=== PATIENT | female | born 1955 | race Caucasian/White ===

== ENCOUNTER 2020-11-17 14:16 | Emergency (ER) | payer MEDICARE, SELFPAY ==
--- NOTE | ~2020-11-17 | XR_ITS ---
EXAMINATION: XR ankle LT min 3V DATE: 11/17/2020 14:38 INDICATION: Left ankle pain TECHNIQUE: Anteroposterior, lateral, mortise, and additional oblique view of the ankle were obtained. 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 An acute, trau matic, closed, oblique fracture of the distal fibula is present which extends to the level of the tib ial plafond. There is an acute, traumatic, closed, transverse fracture of the medial malleolus at the level of the tibial plafond. Ankle soft tissue swelling is present. Mild osteoarthritis is noted. IMPRESSION: 1. Acute oblique fracture of the distal fibula extending to the tibial plafond. 2. Acute transverse fracture of the medial malleolus at the level of the tibial plafond. 3. 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 Reviewed, dictated and finalized at location A.
[2020-11-17 16:15] VITALS: BP 128/76; PULSE 80; RESP 16; TEMP 36.6; O2SAT 96
--- NOTE | 2020-11-17 16:50 | ED.GENADULT ---
HPI - General Adult General Chief complaint: Extremity Injury, Lower <CAROLIN Woodson Last Filed: 11/17/20 18:12> Stated complaint: left ankle injury <CAROLIN Woodson Last Filed: 11/17/20 18:12> Time Seen by Provider: 11/17/20 16:26 <CAROLIN Woodson Last Filed: 11/17/20 18:12> History of Present Illness HPI narrative: Patient is a 65 YO female who comes to the Ed with left ankle pain. stepped awarkwardly down 1 step and rolled left ankle. Fell to ground. No other injuries. left ankle is edematous. Not able to bear weight - Does have crutches at home and used them. No numbness or tingling currently, did have some earlier. Took aleve 2 hours ago which helped. pain is am 8/10 with movements. <CAROLIN Woodson Last Filed: 11/17/20 18:12> Related Data Allergies/adverse reactions: Allergies Allergy/AdvReac Type Severity Reaction Status Date / Time latex Allergy Intermediate Rash Verified 04/08/19 09:39 Penicillins Allergy Unknown Verified 01/07/19 11:09 Sulfa (Sulfonamide Allergy Unknown Verified 01/07/19 11:09 Antibiotics) <CAROLIN Woodson Last Filed: 11/17/20 18:12> Review of Systems Constitutional: Constitutional: Reports as per HPI, Denies fever(s), Denies night sweats and Denies weakness <CAROLIN Woodson Last Filed: 11/17/20 18:12> Cardiovascular: Cardiovascular: Denies chest pain, Denies edema, Denies leg edema, Denies dyspnea and Denies orthopnea <CAROLIN Woodson Last Filed: 11/17/20 18:12> Respiratory: Respiratory: Denies cough and Denies dyspnea <CAROLIN Woodson Last Filed: 11/17/20 18:12> Gastrointestinal: Gastrointestinal: Denies abdominal pain, Denies constipation, Denies diarrhea, Denies nausea and Denies vomiting <CAROLIN Woodson Last Filed: 11/17/20 18:12> Musculoskeletal: Musculoskeletal: Denies abnormal gait, Denies back pain, Denies numbness and Denies tingling <Riki ZelayaCAROLIN young Last Filed: 11/17/20 18:12> Comments: See HPI <Riki TorresCAROLIN Last Filed: 11/17/20 18:12> Neurologic: Denies Abnormal speech present, Denies abnormal gait, Denies numbness, Denies tingling and Denies weakness <Riki ZelayaCAROLIN young Last Filed: 11/17/20 18:12> Psychiatric: Psychiatric: Denies homicidal ideation and Denies suicidal ideation <Riki ZelayaCAROLIN young Last Filed: 11/17/20 18:12> [facility] Family History Family History: Family History (Updated 01/07/19 @ 11:12 by DOCTOR UNKNOWN) Other Diabetes mellitus Family history of arthritis <Riki ZelayaCAROLIN young Last Filed: 11/17/20 18:12> Social History Social History: Social History Smoking status: Never smoker Alcohol intake: current <Riki ZelayaCAROLIN young Last Filed: 11/17/20 18:12> Exam Const: General: cooperative, healthy appearing, comfortable, no acute distress, well developed, alert, awake and Physically active <Riki ZelayaCAROLIN young Last Filed: 11/17/20 18:12> Orientation/consciousness: patient oriented x3 <Riki Dey CAROLIN Torres Last Filed: 11/17/20 18:12> HENMT: Head: normal to inspection, normocephalic and atraumatic <Riki Dey CAROLIN Torres Last Filed: 11/17/20 18:12> Ears: external ears normal <Riki ZelayaCAROLIN young Last Filed: 11/17/20 18:12> General nose exam: Normal external nose present <Riki Dey CAROLIN Torres Last Filed: 11/17/20 18:12> Eyes: Pupils: Equal, round and reactive pupils present <CAROLIN Woodson Last Filed: 11/17/20 18:12> EOM: EOMs intact bilaterally <CAROLIN Woodson Last Filed: 11/17/20 18:12> Neck: Neck: normal visual inspection <CAROLIN Woodson Last Filed: 11/17/20 18:12> Chest: Chest palpation & inspection: normal inspection of the chest and no tenderness <CAROLIN Woodson Last Filed: 11/17/20 18:12> Resp: Effort & Inspection: nor
[2020-11-17] MEDS: ACETAMINOPHEN 500 MG TABLET 1000 MG PO (17:13)
[2020-11-17] MEDS: KETOROLAC 30 MG/ML VIAL (*BKC) IM (18:40)
[2020-11-17 18:50] VITALS: BP 134/78; PULSE 80; RESP 18; O2SAT 100
== END 2020-11-17 18:52 | disposition home or self-care (01) ==
PROVIDERS: Emergency Provider Emergency Medicine; PCP Internal Medicine
DX: S82.832A Other fracture of upper and lower end of left fibula, initial encounter for closed fracture (principal); S82.52XA Displaced fracture of medial malleolus of left tibia, initial encounter for closed fracture; X50.9XXA Other and unspecified overexertion or strenuous movements or postures, initial encounter
CPT/HCPCS: 29515; 73610; 96372; 99284; A9270; J1885

== ENCOUNTER → 2023-05-19 09:53 | Outpatient (CLI) | payer MEDICARE, SELFPAY ==
--- NOTE | ~2023-05-19 | XR_ITS ---
XR chest 2V 05/19/2023 10:10 Indication: Abnormal findings on diagnostic imaging. Procedure: 2 view chest Comparison: No prior studies for comparison. Findings: Heart size is normal. No focal air space disease, pulmonary edema, pleural effusion or susp ected pneumothorax. The lungs are hyperinflated which is consistent with, but not diagnostic of chron ic obstructive pulmonary disease. There is a small hiatal hernia. Impression: 1: No acute cardiopulmonary disease. Reviewed, dictated and finalized at location L. Impression: 1: No acute cardiopulmonary disease.
--- NOTE | ~2023-05-19 | DEXA_ITS ---
Bone Density Report Name: TANYA DEL CASTILLO Age: 68 Sex: Female Ethnicity: White Date of : 1955 Indication: postmenopausal; screening for osteoporosis; height loss; prior fracture; Referring Provider: TOBIN, MARITZA Mcgovern Study: Bone densitometry was performed. Exam Date: May 19, 2023 Accession number: [id number] Bone Density: Region BMD T-score Z-score Classification AP Spine (L1-L4) 0.703 -3.1 -1.1 Osteoporosis Femoral Neck (Left) 0.535 -2.8 -1.1 Osteoporosis Total Hip (Left) 0.655 -2.4 -0.9 Osteopenia Femoral Neck (Right) 0.467 -3.4 -1.7 Osteoporosis Total Hip (Right) 0.606 -2.8 -1.4 Osteoporosis Total Hip Mean 0.631 -2.6 -1.2 Osteoporosis World Health Organization criteria for BMD impression classify patients as: Normal (T-score at or above -1.0), Osteopenia (T-score between -1.0 and -2.5), or Osteoporosis (T-score at or below -2.5). 10-year Fracture Risk: FRAX not reported because: Some T-score for Spine Total or Hip Total or Femoral Neck at or below -2.5 Clinical Information Provided by Patient: Has had a low trauma fracture Patient maximum height was 68.5 Menopause Age: 34 No regular weight bearing exercise Does not regularly consume dairy products Drinks caffeinated beverages Onset of menses at age 16 Number of children 2 Missed period for more than 6 months in a row Impression: The patient has established osteoporosis, based on the Right Femoral Neck T-score and the existence of a prior fracture. The patient has risk factors, including: previous fracture. Discussion: HIGH RISK OF FRACTURE. BONE DENSITY IS UNDESIRABLY LOW AT ONE OR MORE SKELETAL SITES, CONSISTENT WITH POSTMENOPAUSAL OSTEOPOROSIS. This patient's lowest T-score, in a patient who has previously fractured, meets the World Health Organization's (WHO) criteria for severe osteoporosis. In untreated patients, the risk of osteoporotic fracture increases approximately two-fold for each 1.0 SD decrease in T-score. Low bone density is not the only risk factor for fracture; also consider factors such as patient's age, frailty or poor health, risk of falling, risk of injury, previous osteoporotic fracture, family history of osteoporosis, cigarette smoking, low body weight, etc. Not everyone with low bone mineral density has osteoporosis; osteomalacia and other metabolic bone disorders should also be considered. Patients who have osteoporosis should be evaluated for specific diseases and conditions (secondary causes) that may cause or contribute to bone loss. The [place] [employer]ocr[employer] (AACE) and National Osteoporosis Foundation (NOF) recommend pharmacologic intervention for all postmenopausal women whose T-score is in this range. The patient should follow a healthful lifestyle (good nutrition with adequate calcium
== END ==
PROVIDERS: PCP Internal Medicine; Visit Provider Internal Medicine
DX: Z78.0 Asymptomatic menopausal state (principal); R93.89 Abnormal findings on diagnostic imaging of other specified body structures; M81.0 Age-related osteoporosis without current pathological fracture; M85.852 Other specified disorders of bone density and structure, left thigh
CPT/HCPCS: 71046; 77080

== ENCOUNTER 2024-12-08 08:08 | Outpatient (CLI) | payer MEDICARE, SELFPAY ==
--- NOTE | ~2024-12-08 | XR_ITS ---
Thoracic spine: Clinical Indication: Back pain AP and lateral views were performed. Mild compression fracture of probably T4. No subluxation evident. There are minimal degenerative disc changes in the thoracic spine. Paravertebral soft tissues appear normal. Impression: Mild compression fracture of probably T4. Minimal degenerative change. Reviewed, dictated and finalized at [facility]. Impression: Mild compression fracture of probably T4. Minimal degenerative change.
== END 2024-12-08 08:09 | disposition home or self-care (01) ==
PROVIDERS: PCP Internal Medicine; Visit Provider Internal Medicine
DX: M54.6 Pain in thoracic spine (principal); R93.7 Abnormal findings on diagnostic imaging of other parts of musculoskeletal system
CPT/HCPCS: 72070